=== PATIENT | male | born 1975 | race Hispanic/Latino ===

== ENCOUNTER 2018-06-18 05:18 | Observation (INO) | payer BC ==
--- NOTE | 2018-06-16 15:24 | Diagnostic Imaging Report ---
EXAMINATION: CHEST 2 VIEWS INDICATION: Preoperative evaluation. COMPARISON: None FINDINGS: TUBES and LINES: None. LUNGS: Lungs are mildly hypoinflated. Lungs are clear. There is no evidence of pneumonia or pulmonary edema. PLEURA: No pleural effusion or pneumothorax. HEART AND MEDIASTINUM: The cardiomediastinal silhouette is unremarkable. BONES AND SOFT TISSUES: No acute osseous lesion. UPPER ABDOMEN: No free air under the diaphragm. IMPRESSION: No acute thoracic abnormality. Signed by: Dr. Mita Dewitt M.D. on 06/16/2018 3:21 PM
[2018-06-16 15:51] LABS: BASOPHILS % 0.4 % (0.0-1.0); EOSINOPHILS % 0.1 % (0.0-6.0); HEMATOCRIT 42.1 % (38.2-49.6); HEMOGLOBIN 13.9 g/dL (14.0-18.0); LYMPHOCYTES # (AUTO) 1.6 (1.0-3.2); LYMPHOCYTES % 23.1 % (18.0-39.1); MEAN CORPUSCULAR HEMOGLOBIN 28.1 pg (28-32); MEAN CORPUSCULAR VOLUME 85.2 fL (81-99); MONOCYTES # (AUTO) 0.4 (0.2-0.8); MONOCYTES % 6.3 % (4.4-11.3); NEUTROPHILS # (AUTO) 4.8 (2.1-6.9); NEUTROPHILS % 69.5 % (38.7-80.0); PLATELET COUNT 202 x10e3/uL (140-360); RED BLOOD COUNT 4.94 x10e6/uL (4.3-5.7); RED CELL DISTRIBUTION WIDTH 12.9 % (11.7-14.4)
[2018-06-16 15:59] LABS: INR 0.82; PROTHROMBIN TIME 12.1 seconds (11.9-14.5)
[2018-06-16 16:04] LABS: ANION GAP 13.8 mmol/L (8-16); BLOOD UREA NITROGEN 12 mg/dL (7-26); BUN/CREATININE RATIO 14 (6-25); CALCIUM 9.2 mg/dL (8.4-10.2); CARBON DIOXIDE 24 mmol/L (22-29); CHLORIDE 102 mmol/L (98-107); CREATININE, SERUM 0.87 mg/dL (0.72-1.25); EST GLOMERULAR FILTRATION RATE > 60 ML/MIN (60-); GLUCOSE 110 mg/dL (74-118); POTASSIUM 3.8 mmol/L (3.5-5.1); SODIUM 136 mmol/L (136-145)
[~2018-06-18] VITALS: Ht 172.7 cm; Wt 110.4 kg
[2018-06-18] VITALS (7 sets, daily range): BP systolic 119–180; BP diastolic 74–86
[~2018-06-18 05:18] MED LIST: TRAZODONE HCL50 MG PO; ZOLOFT50 MG PO
--- OUTSIDE RECORDS SUMMARY | 2018-06-18 05:21 | XMS REPORT ---
Author Author [facility] Address Unknown Phone Unavailable Care Team Providers Care Assistant Professor Of Chemistry Name Role Phone TYLER DE LA CRUZ Unavailable Unavailable Problems This patient has no known problems. Allergies, Adverse Reactions, Alerts This patient has no known allergies or adverse reactions. Medications This patient has no known medications. Results Test Description Test Time Test Comments Text Results Atomic Results Result Comments CHEST 2 VIEWS 2018-06-16 15:20:00 [facility] [address] [place] [address] Patient Name: TIFFANIE DODSON MR #: [id number] : 1975 Age/Sex: 42/M Req #: [id number] [facility] Physician: Ordered by: TYLER DE LA CRUZ MD Report #: [id number] Location: OR Room/Bed: Procedure: [id number] DX/CHEST 2 VIEWS Exam Date: 06/16/18 Exam Time: 1500 REPORT STATUS: Signed EXAMINATION: CHEST 2 VIEWS INDICATION: Preoperative evaluation. COMPARISON: None FINDINGS: TUBES and LINES: None. LUNGS: Lungs are mildly hypoinflated. Lungs are clear. There is no evidence of pneumonia or pulmonary edema. PLEURA: No pleural effusion or pneumothorax. HEART AND MEDIASTINUM: The cardiomediastinal silhouette is unremarkable. BONES AND SOFT TISSUES: No acute osseous lesion. UPPER ABDOMEN: No free air under the diaphragm. IMPRESSION: No acute thoracic abnormality. Signed by: Dr. Mita Dewitt M.D. on 06/16/2018 3:21 PM Dictated By: EMMA DEWITT MD, MD [id number] Transcribed By: LALITO on 06/16/18 1521 COPY TO: TYLER DE LA CRUZ MD
[2018-06-18] MEDS ORDERED: CEFAZOLIN SOD 2 GM/D5W 50ML 50 ML IV ONE (05:42)
--- NOTE | 2018-06-18 07:15 | NUR ---
SPIRITUAL CARE - Pre-Surgery Assessment: Pt in bed. Pt's at bedside. Pt reported supportive attention from family and friends. Intervention: I provided pastoral presence, hospitality, and sympathetic listening. I acquainted pt with availability of junior accountant while hospitalized. Outcome: Pt expressed appreciation for visit. No need for follow up indicated at this time. IVONNE [place] Spiritual Care Department O: [phone] Pager: [phone] ([phone] number calling from)
[2018-06-18] MEDS ORDERED: BUPIVACAINE 0.5%/EPI 30 ML SDV INJ ONE (07:22)
[2018-06-18] MEDS ORDERED: THROMBIN FOR SOLN 5,000 UNIT VIAL ONE (07:22)
[2018-06-18] MEDS ORDERED: GELATIN SPONGE 12-7MM ONE (07:23)
[2018-06-18] MEDS ORDERED: BACITRACIN 50,000 UNIT VIAL ONE (07:23)
[2018-06-18] MEDS ORDERED: CEPACOL SORE THROAT LOZENGES PO PRN (08:45)
[2018-06-18] MEDS ORDERED: ACETAMINOPHEN 325 MG TAB PO PRN (08:45)
[2018-06-18] MEDS ORDERED: ONDANSETRON HCL INJ 2MG/ML 2ML 2 MG/ML VIAL IV PRN (08:45)
[2018-06-18] MEDS ORDERED: HYDROMORPHONE 2MG/ML 2 MG/ML ML IV PRN ×2 (08:45→10:45)
[2018-06-18] MEDS ORDERED: MORPHINE SULFATE 5 MG/ML VIAL IM PRN (08:45)
[2018-06-18] MEDS ORDERED: ZOLPIDEM TARTRATE 5 MG TAB PO PRN (08:45)
[2018-06-18] MEDS ORDERED: MAGNESIUM/ALUMINUM/SIMETHICONE 30 ML UDC PO PRN (08:45)
[2018-06-18] MEDS ORDERED: OXYCODONE/ACETAMINOPHEN 5-325 1 EACH TABLET PO PRN (08:45)
[2018-06-18] MEDS ORDERED: PROMETHAZINE HCL (IM) 25 MG/ML VIAL IM PRN ×2 (08:45→10:45)
[2018-06-18] MEDS: SERTRALINE HCL 50 MG TAB PO SCH (09:00)
[2018-06-18] MEDS ORDERED: MORPHINE SULFATE INJ 4 MG/ML INJ 1ML ONE ×2 (09:13→09:29)
--- NOTE | 2018-06-18 09:26 | Operative Report ---
DATE OF PROCEDURE: June 18, 2018 PREOPERATIVE DIAGNOSIS: C4-5 spondylosis and disk herniation with radiculopathy, M50.121. POSTOPERATIVE DIAGNOSIS: C4-5 spondylosis and disk herniation with radiculopathy, M50.121. PROCEDURES: 1. C4-5 anterior cervical diskectomy and microsurgical osteophyte resection and allograft fusion, 94230. 2. Preparation of MTF cortical cancellous allograft, 33633. 3. C4-5 anterior cervical plating with Synthes ZPN plate, 44747. ANESTHESIA: General. INDICATIONS: The patient is a 42-year-old man who presents with C4-5 spondylosis and disk herniation symptomatic with a left C5 radiculopathy, and was taken to the operating room for anterior cervical decompression and fusion. DESCRIPTION OF PROCEDURE: After induction of general anesthesia, the patient was placed on the operating table in supine position. The right side of the neck was prepped and draped in sterile fashion. The fluoroscopic C-arm was positioned in cross-table lateral orientation. A transverse incision was created on right side of the neck superimposed on the C4-5 disk space as determined by fluoroscopy. The platysma was divided in line with the incision. The subplatysmal dissection was carried out. An avascular plane of dissection was developed medial to sternocleidomastoid muscle and was followed medial to the carotid sheath to the anterior border of the cervical spine. The deep cervical fascia was opened. The esophagus was retracted to the left. The attachments of longus colli muscles to the anterolateral aspects of vertebral bodies of C4 and C5 were divided. The anterior longitudinal ligament was resected. [place] posts were inserted into C4 and C5, and a [place] distractor was used to distract the disk space. The anterior annulus of the disk was incised with a #11 blade, and the contents of the disk were thoroughly evacuated with angled curettes and pituitary rongeurs. The posterior osteophytes were meticulously drilled with a 2-mm cutting bur on a high-speed drill until they were completely removed. The posterior annulus of the disk, herniated disk material, and the posterior longitudinal ligament were resected [id number] until the dura was fully exposed and decompressed. The medial aspects of the uncinate processes were resected bilaterally with particular attention given to the left side to fully expose and decompress the origins of the corresponding C5 nerve roots. After satisfactory decompression had been achieved, the endplates were prepared for fusion. The disk space was sized and found to be 8 mm in height. A piece of MTF cortical cancellous allograft measuring 8 mm in thickness was selected and prepared in saline and loaded onto a Synthes ZPN plate. The construct was inserted into the C4-5 disk space under distraction and fluoroscopic guidance. The distraction was released, and the distraction posts were removed. The plate was then screwed to the endplates of C4 and C5 with 2 pairs of 14-mm screws. All screws were locked and excellent construct was obtained. The wound was copiously irrigated with bacitracin solution. Meticulous hemostasis was secured. Retractor was removed. The platysma was closed with 3-0 Vicryl sutures. The skin was closed with 4-0 Monocryl sutures in subcuticular fashion. Steri-Strips and a dressing were applied. The patient was awakened, extubated, and taken to postanesthesia care unit in stable condition. No intraoperative complications were encountered. Estimated blood loss was 10 mL. Job#: [id number]
[2018-06-18] MEDS: CARISOPRODOL 350 MG TAB PO PRN ×3 (09:50→22:31)
--- NOTE | 2018-06-18 10:20 | NUR ---
Patient arrived from PACU, fully awake and alert. Anterior neck dressing intact and collar in place. He was able to ambulate with standby assistance. POC discussed. Family in the room . Bed in lowest position, locked and call hart within reach.
[2018-06-18] MEDS: OXYCODONE/ACETAMINOPHEN 5-325 1 EACH TABLET PO PRN ×5 (12:45→22:31)
[2018-06-18] MEDS: CEFAZOLIN SOD 1 GM/NS 50ML 50 ML IV SCH ×2 (14:55→22:42)
[2018-06-18] MEDS: LACTATED RINGER'S 1,000 ML IV SCH ×2 (15:09→16:52)
--- NOTE | 2018-06-18 15:30 | NUR ---
Patient ambulating without difficulty and able to void x2. Will continue to monitor.
--- NOTE | 2018-06-18 18:49 | NUR ---
Report given to oncoming shift.
--- NOTE | 2018-06-18 19:10 | NUR ---
report given and walking rounds complete. pt resting in bed and in no apparent distress. pt has soft collar in place and no current complaints of pain. pt family at bedside.
[2018-06-18] MEDS ORDERED: MIDAZOLAM HCL 2 MG/2 ML VIAL ONE (19:28)
[2018-06-18] MEDS ORDERED: FENTANYL CITRATE/PF 100MCG/2 ML INJ ONE (19:28)
[2018-06-18] MEDS ORDERED: GLYCOPYRROLATE INJ 1MG/ 5 ML SYR ONE (19:42)
[2018-06-18] MEDS ORDERED: ONDANSETRON HCL INJ 2MG/ML 2ML 2 MG/ML VIAL ONE (19:42)
[2018-06-18] MEDS ORDERED: ACETAMINOPHEN 1000 MG/100 ML IV ONE (19:42)
[2018-06-18] MEDS ORDERED: PROPOFOL IV EMULSION 10 MG/ML 20 ML VIAL ONE (19:42)
[2018-06-18] MEDS ORDERED: LIDOCAINE HCL 2% LOCAL INJ 5 ML SDV VIAL INJ ONE (19:42)
[2018-06-18] MEDS ORDERED: ROCURONIUM BROMIDE 10 MG/ML 5ML VIAL ONE (19:42)
[2018-06-18] MEDS ORDERED: NEOSTIGMINE 5 MG/5ML SYR ONE (19:42)
[2018-06-18] MEDS ORDERED: DEXAMETHASONE SOD PHOS INJ 4 MG/ML VIAL ONE (19:42)
[2018-06-18] MEDS ORDERED: SEVOFLURANE INHAL SOLN 250 ML PEN BTL ONE (19:42)
[2018-06-18] MEDS ORDERED: TRAZODONE HCL 50 MG TAB PO SCH (21:00)
[2018-06-19 00:40] VITALS: BP 117/65
[2018-06-19] MEDS: LACTATED RINGER'S 1,000 ML IV SCH (01:12)
[2018-06-19 05:15] VITALS: BP 127/74
[2018-06-19] MEDS: CEFAZOLIN SOD 1 GM/NS 50ML 50 ML IV SCH (06:21)
--- NOTE | 2018-06-19 06:27 | NUR ---
pt off unit for radiology
--- NOTE | 2018-06-19 06:36 | NUR ---
Pt returned to unit from radiology
[2018-06-19] MEDS: CARISOPRODOL 350 MG TAB PO PRN (06:40)
[2018-06-19] MEDS: OXYCODONE/ACETAMINOPHEN 5-325 1 EACH TABLET PO PRN (06:40)
--- NOTE | 2018-06-19 07:13 | NUR ---
report given and walking rounds complete
--- NOTE | 2018-06-19 07:18 | NUR ---
patient resting in bed, AAOx3, with neck collar surgical incision site dressing is intact, Not in any distress, normal breathing, call light in reach.
--- NOTE | 2018-06-19 07:32 | Diagnostic Imaging Report ---
EXAMINATION: C-SPINE 2 VIEWS AP LATERAL INDICATION: Status post surgery. COMPARISON: None FINDINGS: C1 through the lower aspect of C7 is visualized. There has been anterior fusion and an intervertebral spacer placed at the level of C4-C5. Hardware appears intact. There is mild apparent straightening of the cervical lordosis. There is prevertebral soft tissue edema, measuring up to 1.8 cm at the C4-C5 level. There is a focus of prevertebral soft tissue gas. IMPRESSION: Recent post surgical changes status post anterior fusion of C4-C5. Signed by: Dr. Minerva Lowery MD on 06/19/2018 7:29 AM
[2018-06-19 08:06] VITALS: BP 117/66
[2018-06-19] MEDS: SERTRALINE HCL 50 MG TAB PO SCH (08:41)
--- NOTE | 2018-06-19 09:00 | NUR ---
Patient Discharge Status Code Form filed in front of chart
--- NOTE | 2018-06-19 09:12 | NUR ---
SOCIAL WORK INITIAL ASSESSMENT Assembly Machine Operator to bedside to discuss plan of care with patient/family. CM/SW role and care transitions discussed. Anticipated discharge plan discussed along with duration of care. CM/SW discussed patients right to make decisions in care. CM/SW work hours given. Patient lives: IN HOUSE WITH FAMILY Admit/Transfer: VIA HOME POA/Emergency contact: JORDI [phone] Current/Previous Home Health: NONE PCP/Follow-up Care: EDGARD Current/Previous DME: NONE Other Services: NONE Employment Status: MEDICAL IMAGING TECHNOLOGIST DESK WORK Areas of Concerns: NONE Referral Needs: NONE Education Needs: NONE IMM/VU given and signed (if applicable): NA Goal for discharge: RETURN HOME NO NEEDS CM/SW left business card at the bedside with contact information. Name and number was also written on the patients whiteboard. Patient verbalized understanding of discussion. CM will follow-up with ongoing discharge and transition of care needs.
[2018-06-19 09:15] VITALS: BP 117/66
[2018-06-19] MEDS ORDERED: NORCO 7.5-3251 EACH PO (09:40)
--- NOTE | 2018-06-19 10:05 | NUR ---
patient discharged home, Patient teaching done with after care instructions in chart, he verbalized understanding, changed dressing from anterior neck, no drainage, redness or swelling noted, patient aware about f/up appointments, prescription given, IV canula removed with tip intact, no ss infiltration noted, Family at bed side giving ride. not in distress, transported via wheelchair to [facility]
== END 2018-06-19 10:27 | disposition home or self-care (01) ==
LOC: OR 05:18 → PACU V 08:33 → IMCU 10:25
PROVIDERS: ADMIT Neurological Surgery; ATTEND Neurological Surgery
DX: M50.121 Cervical disc disorder at C4-C5 level with radiculopathy (principal); G47.33 Obstructive sleep apnea (adult) (pediatric); K21.9 Gastro-esophageal reflux disease without esophagitis; Z01.810 Encounter for preprocedural cardiovascular examination; Z01.812 Encounter for preprocedural laboratory examination; Z01.811 Encounter for preprocedural respiratory examination
CPT/HCPCS: 20931; 22551; 22845; 36415; 71046; 72040; 77003; 80048; 85025; 85610; 85730; 86850; 86900; 88304; 93005; G0378 ×2; J0131; J0690 ×3; J1100; J1170; J2001; J2250; J2270; J2405; J2704; J3490; J7121